=== PATIENT | female | born 1955 | race Caucasian/White ===

== ENCOUNTER 2019-10-10 17:39 | Emergency (ER) | payer OTHER, MEDICAID ==
[~2019-10-10] VITALS: Ht 154.9 cm; Wt 56.7 kg
[2019-10-10 18:29] VITALS: BP 147/88
== END 2019-10-10 19:08 | disposition home or self-care (01) ==
LOC: ER 17:39
DX: H11.31 Conjunctival hemorrhage, right eye (principal); Z88.2 Allergy status to sulfonamides

== ENCOUNTER 2024-05-03 11:32 | Inpatient (IN) | payer OTHER, MEDICAID ==
[~2024-05-03] VITALS: Ht 156.2 cm; Wt 54.2 kg
--- NOTE | 2024-05-03 12:02 | ED.PDOC ---
HPI (NEURO) HPI Comments 68Y F with PMHx arthritis, vertigo, and seizures presents to ED for chief complaint dizziness and vertigo x1week. Pt denies chest pain, SOB, and headache. Pt state she feels unsteady when standing and walking. Per pt, she is currently taking Ibuprofen and Amoxicillin for a molar infection and was seen by the dentist yesterday. Chief Complaint: Dizziness Time Seen by MD: 11:44 Primary Care Provider: DR MALIK Reviewed Notes: Medications, Allergies Information Source: Patient Mode of Arrival: Ambulatory Severity: Mild Dizziness/Weakness Severity: Does not affect activitie Headache Severity: None Timing: Weeks Duration: Since onset Onset: At rest Circumstances: Spontaneous Symptoms: Imbalance Modifying factors: Nothing Associated Signs and Symptoms: None Past Medical History PAST MEDICAL HISTORY: Arthritis, Seizures Past Medical History (Other): Vertigo Surgical History: Denies all surgeries SALES ACCOUNT DIRECTOR History: No Pertinent SALES ACCOUNT DIRECTOR History Family History Family History: Unknown Social History Smoker: Non-Smoker Alcohol: Denies ETOH Use Drugs: Denies Drug Use Lives In: Home Constitutional: denies: chills, diaphoresis, fatigue, fever, malaise, sweats, weakness, others EENTM: denies: blurred vision, double vision, ear bleeding, ear discharge, ear drainage, ear pain, ear ringing, eye pain, eye redness, hearing loss, mouth pain, mouth swelling, nasal discharge, nose bleeding, nose congestion, nose pain, photophobia, tearing, throat pain, throat swelling, voice changes, others Respiratory: denies: cough, hemoptysis, orthopnea, SOB at rest, shortness of breath, SOB with excertion, stridor, wheezing, others Cardiovascular: denies: chest pain, dizzy spells, diaphoresis, Dyspnea on exertion, edema, irregular heart beat, left arm pain, lightheadedness, palpitations, PND, syncope, others Gastrointestinal: denies: abdomen distended, abdominal pain, blood streaked bowels, constipated, diarrhea, dysphagia, difficulty swallowing, hematemesis, melena, nausea, poor appetite, poor fluid intake, rectal bleeding, rectal pain, vomiting, others Genitourinary: denies: abnormal vagina bleeding, burning, dyspareunia, dysuria, flank pain, frequency, hematuria, incontinence, pain, , vagina discharge, urgency, others Neurological: reports: dizziness, others (vertigo); denies: fainting, headache, left sided numbness, left sided weakness, numbness, paresthesia, pre-existing deficit, right sided numbness, right sided weakness, seizure, speech problems, tingling, tremors, weakness Musculoskeletal: denies: back pain, gout, joint pain, joint swelling, muscle pain, muscle stiffness, neck pain, others Integumetry: denies: bruises, change in color, change in hair/nails, dryness, laceration, lesions, lumps, rash, wounds, others Allergic/Immunocompromised: denies: Difficulty Healing, Frequent Infections, Hives, Itching, others Hematologic/Lymphatic: denies: anemia, blood clots, easy bleeding, easy bruising, swollen glands, others Endocrine: denies: excessive hunger, excessive sweating, excessive thirst, excessive urination, flushing, intolerance to cold, intolerance to heat, unexplained weight gain, unexplained weight loss, others Psychiatric: denies: anxiety, bipolar disorder, depression, hopeless, panic disorder, schizophrenia, sleepless, suicidal, others All Other Systems: Reviewed and Negative Physical Exam General Appearance: Moderate Distress, Normal HEENT: Normal ENT Inspection, Pharynx Normal, TMs Normal Neck: Full Range of Motion, Non-Tender, Normal, Normal Inspection Respiratory: Chest Non-Tender, Lungs Clear, No Accessory Muscle Use, No Respiratory Distress, Normal Breath Sounds Cardiovascular: No Edema, No JVD, No Murmur, No Gallop, Normal Peripheral Pulses, Regular Rate/Rhythm Breast Exam: Deferred Gastrointestinal: No Organomegaly, Non Tender, No Pulsatile Mass, Normal Bowel Sounds, Soft Genitalia: Deferred Pelvic: Deferred Rectal: Deferred Extremities: No calf tenderness, Normal capillary refill, Normal inspection, Normal range of motion, Non-tender, No pedal edema Musculoskeletal : Apperance: Normal Neurologic: Alert, senior applications architect II-XII nml as Tested, No Motor Deficits, Normal Affect, Normal Mood, No Sensory Deficits Cerebellar Function: NOT DONE Reflexes: NOT DONE Skin: Dry, Normal Color, Warm Peripheral Pulses: 3+ Radial (R), 3+ Radial (L) Lymphatic: No Adenopathy Was a procedure done? Was a procedure done?: No Differential Diagnosis (SZ) Seizure: Psychogenic Seizure, Closed Head Injury, CVA/TIA, N/A General Weakness: Dehydration, Vertigo: central X-Ray, Labs, Meds, VS Vital Signs Date Time Temp Pulse Resp B/P (MAP) Pulse Ox O2 Delivery O2 Flow Rate FiO2 05/03/24 14:50 98.7 68 16 133/66 (88) 98 98.7 05/03/24 12:19 70 20 96 Room Air 05/03/24 12:19 98.8 70 20 142/75 (97) 96 98.8 05/03/24 11:47 65 05/03/24 11:36 97.6 81 20 125/74 (91) 99 Lab Test 05/03/24 12:13 05/03/24 12:07 05/03/24 11:42 Range/Units Urine Color Light-yellow Yellow Urine Clarity Clear Clear Urine pH 5.0 5.0-9.0 Urine Specific [place] 1.010 1.001-1.035 Urine Protein Negative Negative Urine Ketones Trace Negative Urine Blood Negative Negative /uL Urine Nitrite Negative Negative Urine Bilirubin Negative Negative Urine Urobilinogen Normal Negative mg/dL Urine Leukocyte Esterase 1+ Negative /uL Urine RBC None seen 0 - 4 /hpf Urine WBC 1 0 - 5 /hpf Urine Squamous Epithelial Cells Few <5 /hpf Urine Bacteria None seen None Seen /hpf Urine Glucose Normal Normal mg/dL White Blood Count 4.8 4.4-10.8 10^3/uL Red Blood Count 4.70 4.0-5.20 10^6/uL Hemoglobin 14.9 12.2-16.2 g/dL Hematocrit 42.9 36.0-46.0 % Mean Corpuscular Volume 91.3 80.0-100.0 fL Mean Corpuscular Hemoglobin 31.6 28.0-32.0 pg Mean Corpuscular Hemoglobin Concent 34.6 32.0-36.0 g/dL Red Cell Distribution Width 12.5 11.8-14.3 % Platelet Count 263 140-450 10^3/uL Mean Platelet Volume 7.4 6.9-10.8 fL Neutrophils (%) (Auto) 67.5 37.0-80.0 % Lymphocytes (%) (Auto) 25.2 10.0-50.0 % Monocytes (%) (Auto) 5.9 0.0-12.0 % Eosinophils (%) (Auto) 0.7 0.0-7.0 % Basophils (%) (Auto) 0.7 0.0-2.0 % Neutrophils # (Auto) 3.2 1.6-8.6 10 ^3/uL Lymphocytes # (Auto) 1.2 0.4-5.4 10 ^3/uL Monocytes # (Auto) 0.3 0-1.3 10 ^3/uL Eosinophils # (Auto) 0 0-0.8 10 ^3/uL Basophils # (Auto) 0 0-0.2 10 ^3/uL Nucleated Red Blood Cells 0.2 % Sodium Level 139 136-145 mmol/L Potassium Level 4.0 3.5-5.1 mmol/L Chloride Level 105 98-107 mmol/L Carbon Dioxide Level 27 20-31 mmol/L Anion Gap 7 5-15 Blood Urea Nitrogen 9 9-23 mg/dL Creatinine 0.89 0.550-1.02 mg/dL Glomerular Filtration Rate Calc 71 >90 mL/min BUN/Creatinine Ratio 10.1 10.0-20.0 Serum Glucose 99 74-106 mg/dL Calcium Level 10.3 8.7-10.4 mg/dL POC Glucose 92 70-106 mg/dl Current Medications Medications (Trade) Dose Ordered Sig/Sridhar Route Start Time Stop Time Status Last Admin Meclizine HCl (Antivert Tablet) 25 mg ONCE ONCE PO 05/03/24 12:00 05/03/24 12:01 DC 05/03/24 12:18 Patient alert pain Continues to have dizziness. Able to ambulate. Vitals stable. EKG reviewed does not show any acute changes. Was given meclizine. WBC within normal limits. Hemoglobin within normal limits. Urinalysis shows mild UTI. Was given Rocephin. Reviewed her history pain Possibly will need MRI. Explained to the patient. Continue cardiac monitoring. Time of 1ST Reevaluation: 12:14 Reevaluation 1ST: Unchanged Patient Education/Counseling: Diagnosis, Treatment Family Education/Counseling: No Family Present Additional Information I reviewed the following notes from patient's past medical encounters: [facility] ER 10/10/2019 and 12/21/2011 The following tests were ordered, and results were reviewed by me: CBC, BMP, UA, EKG I discussed treatment and results with medical personnel. Departure 1 Departure Time of Disposition: 15:01 Impression: Primary Impression: Autonomic disorder Additional Impression: UTI (urinary tract infection) Qualified Codes: N30.00 - Acute cystitis without hematuria Disposition: ADMITTED INPATIENT Admit to: Med Surg Condition: Guarded Critical Care Note Critical Care Time?: No Stability Stability form required: No Heart Score Heart Score: Heart Score Response (Comments) Value History Slightly Suspicious 0 EKG Normal 0 Age >65 2 Risk Factors 1 or 2 risk factors 1 Troponin N/A 0 Total 3 I personally scribed for YANETH LUO MD ([email or web address]) on 05/03/24 at 12:01. Electronically submitted by Mary Beth Walsh ([email or web address]). YANETH LUO MD May 03, 2024 12:01
[2024-05-03] MEDS: MECLIZINE HCL 25 MG TAB PO ONE (12:18)
[2024-05-03 12:35] LABS: Chloride 105 mmol/L (98-107); Sodium 139 mmol/L (136-145)
[2024-05-03 12:36] LABS: Anion Gap 7 (5-15); Carbon Dioxide 27 mmol/L (20-31)
[2024-05-03 12:37] LABS: Calcium 10.3 mg/dL (8.7-10.4)
[2024-05-03 12:41] LABS: BUN/Creatinine Ratio 10.1 (10.0-20.0); Basophils # (auto) 0 10 ^3/uL (0-0.2); Basophils % (auto) 0.7 % (0.0-2.0); Eosinophils # (auto) 0 10 ^3/uL (0-0.8); Eosinophils % (auto) 0.7 % (0.0-7.0); Glucose 99 mg/dL (74-106); Hematocrit 42.9 % (36.0-46.0); Hemoglobin 14.9 g/dL (12.2-16.2); Lymphocytes # (auto) 1.2 10 ^3/uL (0.4-5.4); Lymphocytes % (auto) 25.2 % (10.0-50.0); Mean Corpuscular Hemoglobin 31.6 pg (28.0-32.0); Mean Corpuscular Hgb Conc. 34.6 g/dL (32.0-36.0); Mean Corpuscular Volume 91.3 fL (80.0-100.0); Monocytes # (auto) 0.3 10 ^3/uL (0-1.3); Monocytes % (auto) 5.9 % (0.0-12.0); Neutrophils # (auto) 3.2 10 ^3/uL (1.6-8.6); Neutrophils % (auto) 67.5 % (37.0-80.0); Nucleated Red Blood Cells % 0.2 %; Platelet Count (auto) 263 10^3/uL (140-450); Red Cell Distribution Width 12.5 % (11.8-14.3); White Blood Cell 4.8 10^3/uL (4.4-10.8)
[2024-05-03 12:43] LABS: Blood Urea Nitrogen 9 mg/dL (9-23)
[2024-05-03 13:10] LABS: Urine Bacteria None Seen /hpf (None Seen)
[2024-05-03 13:20] LABS: Urine Blood Negative /uL (Negative); Urine Clarity Clear (Clear); Urine Color Light-Yellow (Yellow); Urine Protein, UAD Negative (Negative); Urine Urobilinogen Normal (Negative); Urine WBC 1 /hpf (0 - 5)
[2024-05-03] MEDS: cefTRIAXone 1GM/50ML D5W 50 ML IV ONE (16:48)
[2024-05-03 16:57] VITALS: PULSE 75; RESP 19; O2SAT 100
[2024-05-03] MEDS ORDERED: MECLIZINE HCL 25 MG TAB PO PRN (17:00)
[2024-05-03] MEDS ORDERED: ACETAMINOPHEN 325 MG TAB PO PRN (17:00)
[2024-05-03] MEDS ORDERED: ONDANSETRON HCL 4 MG/2 ML VIAL IV PRN (17:00)
[2024-05-03] MEDS ORDERED: DOCUSATE SOD 100 MG CAP PO PRN (17:00)
[2024-05-03] MEDS ORDERED: HYDROcodone-ACET 5/325MG TAB PO PRN (17:00)
--- NOTE | 2024-05-03 17:44 | DVHHP2 ---
History of Present Illness Reason for Visit: Autonomic disorder History of Present Illness The patient is a 68-year-old female with past medical history of arthritis, head injury, seizure, and vertigo presented to [facility] ED with complaint of dizziness for a proximally 1 week duration. Patient reports symptoms progressively get worse with unsteady gait, headache, getting worse that prompted this visit. Patient reports she is currently on antibiotic regimen amoxicillin for tooth infection and was seen by the dentist yesterday. Patient was seen and evaluated in the ED, laboratory data shows WBC 4.8, platelets 263, sodium 139, potassium 4.0, BUN 9, creatinine 0.89, glucose 99, calcium 10.3, blood pressure 133/66, heart rate 60, temperature 98.7 F, O2 saturation 98% on room air. Patient was started on IV antibiotic regimen Rocephin, please see medication orders section in the computer. On my assessment, patient denied chest pain, no headache, no dizziness at this moment, no vertigo, no shortness of breaths, no nausea, no vomiting, no fever, no chills. Patient was admitted for further evaluation and medical management. Past Medical History Arthritis, Seizures, Vertigo Past Surgical History Denies all surgeries Family History Reviewed, noncontributory to the management of this case. Past Social History The patient lives at home, denies smoking, alcohol or illicit drugs abuse. Review of Systems Constitutional: No: Fever, Chills, Sweats, Weakness, Malaise, Other Eyes: No: Pain, Vision change, Conjunctivae inflammation, Eyelid inflammation, Other, Redness ENT: No: Ear pain, Ear discharge, Nose pain, Nose discharge, Nose congestion, Mouth pain, Mouth swelling, Throat pain, Throat swelling, Other Respiratory: No: Cough, Dry, Shortness of breath, SOB with excertion, Wheezing, Hemoptysis, Pleuritic Pain, Sputum, Wheezing, Other Cardiovascular: No: Chest Pain, Palpitations, Orthopnea, Paroxysmal Noc. Dyspnea, Edema, Lt Headedness, Other Gastrointestinal: No: Nausea, Vomiting, Abdominal Pain, Diarrhea, Constipation, Melena, Hematochezia, Other Genitourinary: No Dysuria, No Frequency, No Incontinence, No Hematuria, No Retention, No Other Musculoskeletal: No: other, neck pain, shoulder pain, arm pain, back pain, hand pain, leg pain, foot pain Skin: No: Rash, Lesions, Jaundice, Bruising, Other Neurological: Other (Dizziness, vertigo.); No: Weakness, Numbness, Incoordination, Change in speech, Confusion, Seizures Allergies: Uncoded Allergies: SULFA (Allergy, Mild, 12/21/11) Medications Current Medications Medications Dose Ordered Sig/Sridhar Route Start Time Stop Time Status Last Admin Dose Admin Ceftriaxone Sodium 50 ml @ 100 mls/hr DAILY@09 IV 05/04/24 09:00 UNV Meclizine HCl 25 mg Q8HPRN PRN PO 05/03/24 17:00 UNV Sodium Chloride 1,000 ml @ 60 mls/hr [id number] IV 05/03/24 17:00 UNV Acetaminophen/ Hydrocodone Bitart 1 tab Q4HP PRN PO 05/03/24 17:00 UNV Ondansetron HCl 4 mg Q4HP PRN IV 05/03/24 17:00 UNV Docusate Sodium 100 mg BIDPRN PRN PO 05/03/24 17:00 UNV Acetaminophen 650 mg Q6HP PRN PO 05/03/24 17:00 UNV Exam Vital Signs Vital Signs Date Time Temp Pulse Resp B/P (MAP) Pulse Ox O2 Delivery O2 Flow Rate FiO2 05/03/24 16:57 75 19 100 Room Air* 0 21 05/03/24 16:57 98.4 122/50 (74) 98.4 General Appearance: Alert, Oriented X3, Cooperative, No acute distress HEENT: Atraumatic, PERRLA, EOMI, Mucous membr. moist/pink Respiratory: Clear to auscultation, Normal air movement Cardiovascular: Regular rate, Normal S1, Normal S2, No murmurs Abdominal: Normal bowel sounds, Soft, No tenderness, No hepatospenomegaly, No masses Extremities: No clubbing, No cyanosis, No edema, Normal pulses, No tenderness/swelling Skin: No rashes, No breakdown, No significant lesion Neuro: Normal speech, Normal tone, Sensation intact, Cranial nerves 3-12 NL, R eflexes 2+, Other (Unsteady gait) Psych/Mental Status: Mental status NL, Mood NL Labs/Xrays Labs Test 05/03/24 12:13 05/03/24 12:07 05/03/24 11:42 Range/Units Urine Color Light-yellow Yellow Urine Clarity Clear Clear Urine pH 5.0 5.0-9.0 Urine Specific [place] 1.010 1.001-1.035 Urine Protein Negative Negative Urine Ketones Trace Negative Urine Blood Negative Negative /uL Urine Nitrite Negative Negative Urine Bilirubin Negative Negative Urine Urobilinogen Normal Negative mg/dL Urine Leukocyte Esterase 1+ Negative /uL Urine RBC None seen 0 - 4 /hpf Urine WBC 1 0 - 5 /hpf Urine Squamous Epithelial Cells Few <5 /hpf Urine Bacteria None seen None Seen /hpf Urine Glucose Normal Normal mg/dL White Blood Count 4.8 4.4-10.8 10^3/uL Red Blood Count 4.70 4.0-5.20 10^6/uL Hemoglobin 14.9 12.2-16.2 g/dL Hematocrit 42.9 36.0-46.0 % Mean Corpuscular Volume 91.3 80.0-100.0 fL Mean Corpuscular Hemoglobin 31.6 28.0-32.0 pg Mean Corpuscular Hemoglobin Concent 34.6 32.0-36.0 g/dL Red Cell Distribution Width 12.5 11.8-14.3 % Platelet Count 263 140-450 10^3/uL Mean Platelet Volume 7.4 6.9-10.8 fL Neutrophils (%) (Auto) 67.5 37.0-80.0 % Lymphocytes (%) (Auto) 25.2 10.0-50.0 % Monocytes (%) (Auto) 5.9 0.0-12.0 % Eosinophils (%) (Auto) 0.7 0.0-7.0 % Basophils (%) (Auto) 0.7 0.0-2.0 % Neutrophils # (Auto) 3.2 1.6-8.6 10 ^3/uL Lymphocytes # (Auto) 1.2 0.4-5.4 10 ^3/uL Monocytes # (Auto) 0.3 0-1.3 10 ^3/uL Eosinophils # (Auto) 0 0-0.8 10 ^3/uL Basophils # (Auto) 0 0-0.2 10 ^3/uL Nucleated Red Blood Cells 0.2 % Sodium Level 139 136-145 mmol/L Potassium Level 4.0 3.5-5.1 mmol/L Chloride Level 105 98-107 mmol/L Carbon Dioxide Level 27 20-31 mmol/L Anion Gap 7 5-15 Blood Urea Nitrogen 9 9-23 mg/dL Creatinine 0.89 0.550-1.02 mg/dL Glomerular Filtration Rate Calc 71 >90 mL/min BUN/Creatinine Ratio 10.1 10.0-20.0 Serum Glucose 99 74-106 mg/dL Calcium Level 10.3 8.7-10.4 mg/dL POC Glucose 92 70-106 mg/dl Assessment/Plan Assessment/Plan Autonomic disorder UTI (urinary tract infection) Unsteady gait Dizziness and giddiness Acute cystitis without hematuria Plan 1. Admit to med surge unit 2. Breathing treatment 3. Pain control management 4. IV antibiotic management 5. Management of fluids and electrolytes 6. Consultation for hospitalist 7. Diagnostic test chest x-ray 8. DVT prophylaxis-on SCDs 9. Repeat labs CBC, CMP in a.m. 10. Home medication reviewed and reconciled 11. Continue with current medical management 12. Treatment plan discussed with patient and RN. Patient verbalized und erstanding. Plan discussed with: Patient, Other (RN) My Orders Orders - OBED ROJAS DNP Procedure Category Date Status Time Ceftriaxone 1gm/50ml PHA 05/04/24 Logged D5w (Rocephin) 09:00 Meclizine Tablet PHA 05/03/24 Logged (Antivert Tablet) 17:00 Allergies IRASEMA 05/03/24 In Process 16:52 Code Status CODE 05/03/24 Transmitted 16:52 Sodium Chloride 0.9% PHA 05/03/24 Logged 17:00 Oxygen Per Hour RT 05/03/24 Transmitted 16:52 Hydrocodone-Acet PHA 05/03/24 Logged 5/325mg Tab (Protem 17:00 Ondansetron Hcl PHA 05/03/24 Logged (Zofran) 17:00 Docusate Sodium PHA 05/03/24 Logged Capsule (Colace 17:00 Fall Risk Precautions IRASEMA 05/03/[address] 16:52 Complete Blood Count LAB 05/04/24 Verified 04:00 Comprehensive LAB 05/04/24 Verified Metabolic Panel 04:00 Cardiac DIET 05/03/24 Transmitted Diet-2gna,Lofat,Lochol Dinner Condition: Serious IRASEMA 05/03/24 In Process 16:52 Acetaminophen Tablet PHA 05/03/24 Logged (Tylenol Tablet) 17:00 Sequential IRASEMA 05/03/24 In Process Compression Device Urine Bacterial YEVGENIY 05/03/24 Logged Culture 16:55 Problem List: (1) Autonomic disorder (2) UTI (urinary tract infection) (3) Unsteady gait (4) Dizziness and giddiness (5) Acute cystitis without hematuria Date of Service: May 03, 2024 Billing Provider: OBED ROJAS DNP Common Visit Codes: [id number] INP/OBS CARE (HIGH) OBED ROJAS DNP May 03, 2024 17:44
[2024-05-03] MEDS ORDERED: NITROGLYCERIN 0.4 MG SL TAB SL PRN (17:45)
[2024-05-03] MEDS ORDERED: MORPHINE SULFATE INJ 2 MG/ml SYRG IV PRN (17:45)
[2024-05-03] MEDS: SODIUM CHLORIDE 0.9% 1,000 ML IV SCH (18:18)
[2024-05-03 21:00] VITALS: BP 140/75; PULSE 84; RESP 18; TEMP 98.5; O2SAT 94
[2024-05-03 21:33] VITALS: O2SAT 96
[2024-05-03 21:48] VITALS: BP 140/75; PULSE 84; RESP 18; TEMP 98.5; O2SAT 94
[2024-05-03] MEDS ORDERED: IBU600T PO (22:26)
[2024-05-03] MEDS ORDERED: AMOX500C2 PO (22:26)
[2024-05-03] MEDS ORDERED: MECL25CH85 PO (22:26)
[2024-05-04] VITALS (8 sets, daily range): BP systolic 126–140; BP diastolic 69–80; PULSE 73–84; RESP 17–19; TEMP 97.4–98.6; O2SAT 96–98
[2024-05-04 07:45] LABS: Basophils # (auto) 0 10 ^3/uL (0-0.2); Basophils % (auto) 0.5 % (0.0-2.0); Eosinophils # (auto) 0 10 ^3/uL (0-0.8); Eosinophils % (auto) 0.9 % (0.0-7.0); Hematocrit 40.6 % (36.0-46.0); Hemoglobin 14.3 g/dL (12.2-16.2); Lymphocytes # (auto) 1.4 10 ^3/uL (0.4-5.4); Lymphocytes % (auto) 31.2 % (10.0-50.0); Mean Corpuscular Hgb Conc. 35.2 g/dL (32.0-36.0); Monocytes # (auto) 0.3 10 ^3/uL (0-1.3); Monocytes % (auto) 7.7 % (0.0-12.0); Neutrophils # (auto) 2.7 10 ^3/uL (1.6-8.6); Neutrophils % (auto) 59.7 % (37.0-80.0); Nucleated Red Blood Cells % 0.3 %; Platelet Count (auto) 238 10^3/uL (140-450); Red Blood Cells 4.47 10^6/uL (4.0-5.20); Red Cell Distribution Width 12.4 % (11.8-14.3); White Blood Cell 4.6 10^3/uL (4.4-10.8)
[2024-05-04 08:04] LABS: Alanine Aminotransferase 14 U/L (7-40); Albumin 4.1 g/dL (3.2-4.8); Alkaline Phosphatase 103 U/L (46-116); Anion Gap 7 (5-15); Aspartate Aminotransferase 17 U/L (13-40); BUN/Creatinine Ratio 10.8 (10.0-20.0); Blood Urea Nitrogen 9 mg/dL (9-23); Calcium 9.9 mg/dL (8.7-10.4); Carbon Dioxide 27 mmol/L (20-31); Glucose 92 mg/dL (74-106); Potassium 3.9 mmol/L (3.5-5.1); Sodium 143 mmol/L (136-145)
[2024-05-04 08:05] LABS: Bilirubin, Total 0.4 mg/dL (0.2-1.0); Total Protein 6.4 g/dL (5.7-8.2)
[2024-05-04 08:10] LABS: Chloride 109 mmol/L (98-107)
[2024-05-04] MEDS: cefTRIAXone 1GM/50ML D5W 50 ML IV SCH (09:07)
[2024-05-05 01:00] VITALS: BP 146/81; PULSE 78; RESP 18; TEMP 97.3; O2SAT 98
[2024-05-05 05:00] VITALS: BP 137/83; PULSE 79; RESP 18; TEMP 97.4; O2SAT 97
[2024-05-05 08:00] VITALS: PULSE 78; RESP 16; O2SAT 98
[2024-05-05] MEDS ORDERED: MECL-90 PO (08:30)
--- NOTE | 2024-05-05 08:33 | DVHDS2 ---
Discharge Summary Date of Admission May 03, 2024 at 17:43 Date of Discharge: May 05, 2024 Labs/Diagnostic Data: Laboratory Results Test 05/04/24 06:58 05/03/24 12:13 05/03/24 11:42 White Blood Count 4.6 10^3/uL (4.4-10.8) Red Blood Count 4.47 10^6/uL (4.0-5.20) Hemoglobin 14.3 g/dL (12.2-16.2) Hematocrit 40.6 % (36.0-46.0) Mean Corpuscular Volume 91.0 fL (80.0-100.0) Mean Corpuscular Hemoglobin 32.0 pg (28.0-32.0) Mean Corpuscular Hemoglobin Concent 35.2 g/dL (32.0-36.0) Red Cell Distribution Width 12.4 % (11.8-14.3) Platelet Count 238 10^3/uL (140-450) Mean Platelet Volume 7.5 fL (6.9-10.8) Neutrophils (%) (Auto) 59.7 % (37.0-80.0) Lymphocytes (%) (Auto) 31.2 % (10.0-50.0) Monocytes (%) (Auto) 7.7 % (0.0-12.0) Eosinophils (%) (Auto) 0.9 % (0.0-7.0) Basophils (%) (Auto) 0.5 % (0.0-2.0) Neutrophils # (Auto) 2.7 10 ^3/uL (1.6-8.6) Lymphocytes # (Auto) 1.4 10 ^3/uL (0.4-5.4) Monocytes # (Auto) 0.3 10 ^3/uL (0-1.3) Eosinophils # (Auto) 0 10 ^3/uL (0-0.8) Basophils # (Auto) 0 10 ^3/uL (0-0.2) Nucleated Red Blood Cells 0.3 % Sodium Level 143 mmol/L (136-145) Potassium Level 3.9 mmol/L (3.5-5.1) Chloride Level 109 mmol/L (98-107) Carbon Dioxide Level 27 mmol/L (20-31) Anion Gap 7 (5-15) Blood Urea Nitrogen 9 mg/dL (9-23) Creatinine 0.83 mg/dL (0.550-1.02) Glomerular Filtration Rate Calc 77 mL/min (>90) BUN/Creatinine Ratio 10.8 (10.0-20.0) Serum Glucose 92 mg/dL (74-106) Calcium Level 9.9 mg/dL (8.7-10.4) Total Bilirubin 0.4 mg/dL (0.2-1.0) Aspartate Amino Transferase (AST) 17 U/L (13-40) Alanine Aminotransferase (ALT) 14 U/L (7-40) Alkaline Phosphatase 103 U/L (46-116) Total Protein 6.4 g/dL (5.7-8.2) Albumin 4.1 g/dL (3.2-4.8) Urine Color Light-yellow (Yellow) Urine Clarity Clear (Clear) Urine pH 5.0 (5.0-9.0) Urine Specific [place] 1.010 (1.001-1.035) Urine Protein Negative (Negative) Urine Ketones Trace (Negative) Urine Blood Negative /uL (Negative) Urine Nitrite Negative (Negative) Urine Bilirubin Negative (Negative) Urine Urobilinogen Normal mg/dL (Negative) Urine Leukocyte Esterase 1+ /uL (Negative) Urine RBC None seen /hpf (0 - 4) Urine WBC 1 /hpf (0 - 5) Urine Squamous Epithelial Cells Few /hpf (<5) Urine Bacteria None seen /hpf (None Seen) Urine Glucose Normal mg/dL (Normal) POC Glucose 92 mg/dl (70-106) Other Laboratory Tests 05/04/24 06:58 Brief Hx & Hospital Course: 68 year old female came with dizziness She had vertigo before She felt better with meclizine here Asymptomatic now DC home F/U PCP JACQUELYN Resume the home meds Final diagnoses: Benign positional vertigo Arthritis Seizure disorder Condition at Discharge: Stable Final Diagnosis/Problems List Benign Positional Vertigo Discharge Disposition: Home SNF Discharge Will this Physician continue t: No Discharge Instruct/Medications Diet: Cardiac 2g Na,low cholest Activity: No Restrictions, As Tolerated Follow Up/Referral: PCP JACQUELYN Medications: Meclizine 25 mg q8h prn Resume home meds Discharge Statement: "Patient was advised to return to the ER or call 911 if any headaches, dizziness, shortness of breath, chest pain, abdominal pain, bleeding, fevers, or worsening of medical condition. Patient was counseled about treatment plan, medications, possible side effects, patientverbalized understanding. All questions were answered to the best of my ability. This discharge took greater then 30 minutes in planning, reviewing documentation, counseling the patient, and discussing with other team members." ASSESSMENT ASSESSMENT Assessment Benign Positional Vertigo Date of Service: May 05, 2024 Billing Provider: MIREYA CAO MD Common Visit Codes: NOT BILLABLE MIREYA CAO MD May 05, 2024 08:33
[2024-05-05 09:00] VITALS: BP 117/78; PULSE 73; RESP 16; TEMP 98.1; O2SAT 99
[2024-05-05 12:16] VITALS: BP 112/71; PULSE 73; RESP 16; TEMP 36.7; O2SAT 95
--- NOTE | 2024-05-05 12:40 | ECG ---
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
[2024-05-05 13:02] VITALS: BP 133/75; PULSE 74; RESP 18; TEMP 98.4; O2SAT 100
== END 2024-05-05 14:00 | disposition home or self-care (01) | DRG 149 ==
LOC: ER 11:32 → OVERFLOW 17:43 → WEST WING 21:33
PROVIDERS: ADMIT Nurse Practitioner Family; ATTEND Internal Medicine Geriatric Medicine
DX: H81.10 Benign paroxysmal vertigo, unspecified ear (principal); N30.00 Acute cystitis without hematuria; G90.9 Disorder of the autonomic nervous system, unspecified; R26.81 Unsteadiness on feet; G40.909 Epilepsy, unspecified, not intractable, without status epilepticus; Z88.2 Allergy status to sulfonamides
CPT/HCPCS: 36415; 80048; 80053; 81001; 82962; 85025; 87086; 93005; 97110; 97116; 97163; 97530; G0378